=== PATIENT | female | born 1955 | race Two or more races ===

== ENCOUNTER 2018-10-31 02:24 | Inpatient (IN) | payer OTHER ==
--- NOTE | 2018-10-30 04:00 | NUR ---
RN NOTES 0230 AM - ADMITTED PATIENT FROM [facility] DUE TO PALPITATION, DIAGNOSED WITH AFIB WITH RVR BY TRISTAN FOLEY. WITH HX OF HTN AND DM, NKA. NO SOB IN ROOM AIR SATURATION 97% SR ON TELE MONITOR, HR 72. PT IS AOX3 AFGHAN SPEAKING ONLY. AMBULATE WITH ASSIST PER SON. SKIN IS INTACT. KEPT PT CLEAN AND DR/ CALL LIGHT WITHIN EASY REACH INSTRUCTION PROVIDED FOR SAFETY AND ASSISTANCE. KEPT PT CLEAN AND COMFORTABLE ON BED. WILL ENDORSED CONTINUITY OF CARE TO AM NURSE.
[~2018-10-31] VITALS: Ht 152.4 cm; Wt 86.2 kg
[2018-10-31] VITALS (7 sets, daily range): BP systolic 108–132; BP diastolic 53–81
[2018-10-31] MEDS ORDERED: HEPARIN SODIUM, PORCINE 5000 UNITS/1 ML VIAL SQ SCH (03:00)
[2018-10-31] MEDS ORDERED: ZOLPIDEM TARTRATE 5 MG TABLET PO PRN (03:00)
[2018-10-31] MEDS ORDERED: MAG HYDROX/AL HYDROX/SIMETH 30 ML UDC PO PRN (03:00)
[2018-10-31] MEDS ORDERED: HYDROCODONE/APAP 5/325MG 1 EACH TABLET PO PRN (03:00)
[2018-10-31] MEDS ORDERED: ONDANSETRON HCL/PF 4 MG/2 ML VIAL IVP PRN (03:00)
[2018-10-31] MEDS ORDERED: ACETAMINOPHEN 325 MG TABLET PO PRN (03:00)
[2018-10-31] MEDS ORDERED: Z GUARD REMEDY 2 OZ OINT TP PRN (03:00)
[2018-10-31] MEDS ORDERED: METF-441 PO (03:05)
[2018-10-31] MEDS ORDERED: LOSA25TA27 PO (03:06)
[2018-10-31] MEDS ORDERED: ASPI-1169 PO (03:06)
[2018-10-31] MEDS ORDERED: ATEN50TA PO (03:06)
[2018-10-31] MEDS ORDERED: HEPARIN SODIUM, PORCINE 5000 UNITS/1 ML VIAL SQ ONE (04:00)
--- NOTE | 2018-10-31 06:53 | NUR ---
RN NOTES PATIENT ASLEEP WELL ON BED. BREATHING EVEN AND UNLABORED. DENIES PAIN. ATE SNACKS NO ASPIRATION SHOWS. NO SIGNIFICANT CHANGE OF CONDITION THROUGHOUT THE SHIFT. CONTINUE TO MONITOR.
--- NOTE | 2018-10-31 07:15 | NUR ---
report received from Elle RN, pt awake alert, denies Chest pain of SOB
[2018-10-31] MEDS ORDERED: DEXTROSE 50%-WATER 50 ML DISP.SYRIN IV PRN (08:00)
[2018-10-31] MEDS ORDERED: CLONIDINE HCL 0.1 MG TABLET PO PRN (08:00)
[2018-10-31 08:36] LABS: BASOPHILS % (AUTO) 0.3 % (0.0-2.0); EOSINOPHILS % (AUTO) 4.4 % (0.0-6.0); HEMATOCRIT 37 % (33-45); HEMOGLOBIN 12.2 g/dL (11.5-14.8); LYMPHOCYTES # (AUTO) 1.9 /CMM (0.8-4.8); LYMPHOCYTES % (AUTO) 37.3 % (20.0-44.0); MEAN CORPUSCULAR HGB CONC 33 g/dl (31.0-36.0); MEAN CORPUSCULAR VOLUME 84 fL (82-100); MONOCYTES # (AUTO) 0.6 /CMM (0.1-1.30); MONOCYTES % (AUTO) 12.4 % (2.0-12.0); NEUTROPHILS # (AUTO) 2.3 /CMM (1.8-8.9); NEUTROPHILS % (AUTO) 45.6 % (43.0-81.0); PLATELET COUNT (AUTO) 259 /CMM (150-450); RED BLOOD CELL COUNT(AUTO) 4.43 MIL/uL (4.0-5.2); WHITE BLOOD COUNT (AUTO) 5.1 K/uL (4.3-11.0)
[2018-10-31 09:08] LABS: ALBUMIN 3.2 g/dL (3.4-5.0); BILIRUBIN,TOTAL 0.5 mg/dL (0.2-1.0); CALCIUM, SERUM 8.9 mg/dL (8.5-10.1); CREATININE 0.6 mg/dL (0.6-1.3); MAGNESIUM 1.7 mg/dL (1.8-2.4); PHOSPHORUS 3.7 mg/dL (2.5-4.9); POTASSIUM 3.8 mmol/L (3.5-5.1); TOTAL PROTEIN, SERUM 6.7 g/dL (6.4-8.2)
[2018-10-31] MEDS: Magnesium 1GM/D5W 100ML PREMIX 100 ML IV SCH ×2 (10:18→11:42)
[2018-10-31] MEDS: DRONEDARONE HYDROCHLORIDE 400 MG TABLET PO SCH ×2 (10:19→16:50)
[2018-10-31] MEDS: LOSARTAN POTASSIUM 50 MG TABLET PO SCH (10:19)
[2018-10-31] MEDS: BLOOD SUGAR DIAGNOSTIC 1 EACH STRIP IN SCH ×3 (12:00→22:24)
[2018-10-31] MEDS: INSULIN REGULAR, HUMAN 100 UNIT/ML 3 ML VIAL SQ PRN ×2 (12:14→22:27)
[2018-10-31 14:20] LABS: THYROID STIMULATING HORMONE 5.89 uIU/mL (0.358-3.74)
[2018-10-31] MEDS: RIVAROXABAN 10 MG TABLET PO SCH (16:51)
--- NOTE | 2018-10-31 19:04 | NUR ---
report given to crystal carson
--- NOTE | 2018-10-31 19:55 | NUR ---
SOLAR INSTALLATION TECHNICIAN OPENING NOTES RECEIVED REPORT FROM AM RN. PATIENT A/A/O X3, ABLE TO MAKE NEEDS KNOWN. BREATHING EVEN & UNLABORED, TOLERATING ROOM AIR W/ NO RESPIRATORY DISTRESS NOTED. ON TELE W/ SINUS RHYTHM W/ FIRST DEGREE AVB, HR 76. DENIES ANY CHEST PAIN OR PALPITATIONS. DC'D LEFT AC IV DUE TO C/O PAIN AROUND SITE & PER PATIENT'S REQUEST. DENIES ANY OTHER PAIN. SAFETY MEASURES IN PLACE W/ SIDE RAILS UP & CALL LIGHT WITHIN REACH. INSTRUCTED TO CALL FOR ASSISTANCE. WILL CONTINUE TO MONITOR.
[2018-11-01] VITALS: BP 106/66
[2018-11-01 04:00] VITALS: BP 118/71
[2018-11-01 06:29] LABS: BASOPHILS % (AUTO) 0.2 % (0.0-2.0); HEMATOCRIT 36 % (33-45); HEMOGLOBIN 12.1 g/dL (11.5-14.8); LYMPHOCYTES # (AUTO) 2.6 /CMM (0.8-4.8); LYMPHOCYTES % (AUTO) 51.1 % (20.0-44.0); MEAN CORPUSCULAR HGB CONC 33 g/dl (31.0-36.0); MEAN CORPUSCULAR VOLUME 84 fL (82-100); MONOCYTES # (AUTO) 0.5 /CMM (0.1-1.30); MONOCYTES % (AUTO) 9.2 % (2.0-12.0); NEUTROPHILS # (AUTO) 1.7 /CMM (1.8-8.9); NEUTROPHILS % (AUTO) 33.5 % (43.0-81.0); PLATELET COUNT (AUTO) 239 /CMM (150-450); RED BLOOD CELL COUNT(AUTO) 4.32 MIL/uL (4.0-5.2)
[2018-11-01 06:41] LABS: ALANINE AMINOTRANSFERASE 24 U/L (12-78); ALBUMIN 3.1 g/dL (3.4-5.0); ALKALINE PHOSPHATASE 73 U/L (46-116); ASPARTATE AMINOTRANSFERASE 16 U/L (15-37); BILIRUBIN,TOTAL 0.4 mg/dL (0.2-1.0); CALCIUM, SERUM 8.7 mg/dL (8.5-10.1); CARBON DIOXIDE 25 mmol/L (21-32); CHLORIDE 105 mmol/L (98-107); CREATININE 0.7 mg/dL (0.6-1.3); GLUCOSE 140 mg/dL (74-106); PHOSPHORUS 3.9 mg/dL (2.5-4.9); POTASSIUM 3.8 mmol/L (3.5-5.1); SODIUM SERUM 139 mmol/L (136-145); TOTAL PROTEIN, SERUM 6.4 g/dL (6.4-8.2); UREA NITROGEN, BLOOD 16 mg/dL (7-18)
[2018-11-01 07:08] LABS: CHOLESTEROL 132 mg/dL (<200); HDL CHOLESTEROL 42 mg/dL (40-60); LDL 79 mg/dL (0-99); TRIGLYCERIDES 124 mg/dL (30-150)
[2018-11-01 08:00] VITALS: BP 117/54
[2018-11-01 08:10] LABS: *SPE A/G RATIO 1.2 (0.7-1.7); *SPE ALBUMIN 3.4 g/dL (2.9-4.4); *SPE ALPHA-1-GLOBULIN 0.2 g/dL (0.0-0.4); *SPE ALPHA-2-GLOBULIN 0.7 g/dL (0.4-1.0); *SPE BETA GLOBULIN 1.1 g/dL (0.7-1.3); *SPE GLOBULIN, TOTAL 2.9 g/dL (2.2-3.9); *SPE M-SPIKE Not Observed g/dL (Not Observed); *SPEGAMMA GLOBULIN 0.9 g/dL (0.4-1.8)
--- NOTE | 2018-11-01 08:13 | NUR ---
PERSONNEL SCHEDULER NOTES RECEIVED PT ALERT AND ORIENTED. ON TELE MONITOR SR. R HAND HL INTACT. NO SOB, NO COMPLAINS OF CHEST PAIN OR DISCOMFORT AT THIS TIME. BS 152 MG/DL. PLAN OF CARE DISCUSSED WITH THE PT. BED IN LOWEST POSITION. CALL LIGHT WITHIN REACH. WILL CONTINUE TO MONITOR.
[2018-11-01] MEDS: DRONEDARONE HYDROCHLORIDE 400 MG TABLET PO SCH ×2 (08:32→16:30)
[2018-11-01] MEDS: LOSARTAN POTASSIUM 50 MG TABLET PO SCH (08:32)
[2018-11-01] MEDS: INSULIN REGULAR, HUMAN 100 UNIT/ML 3 ML VIAL SQ PRN ×2 (08:34→12:21)
[2018-11-01] MEDS: BLOOD SUGAR DIAGNOSTIC 1 EACH STRIP IN SCH ×2 (08:35→12:25)
[2018-11-01 12:00] VITALS: BP_SYST 138; BP_DIAS 80; BP_DIAS 82
--- NOTE | 2018-11-01 12:23 | NUR ---
PLACEMENT OFFICER NOTES AMBULATED AROUND THE ROOM. ABLE TO GO TO THE RESTROOM BY HERSELF.
--- NOTE | 2018-11-01 15:09 | NUR ---
WOODWORKING MACHINE OFFBEARER NOTES RECEIVED PT FROM ER WITH DX SYNCOPE AND POSSIBLE ACS, CHEST PAIN, AND POSSIBLE AUTONOMIC IMBALANCE. UNDER CARE OF RN OG CEDEÑO. ALERT ORIENTED. ON TELE MONITOR SR HR 60. PT HAS RT AC GAUGE 20. INTACT. NO SOB. HOSPITAL ORIENTATION DONE. VS CHECKED AND STABLE. BED ON LOWEST POSITION. WILL CONT TO MONITOR CLOSELY. Addendum: 11/01/18 at 1534 by ANNE PICHARDO RN WRONG CHART. WRONG ENTRY.
--- NOTE | 2018-11-01 15:34 | NUR ---
CORRECTIONS OFFICER NOTE AMBULATED AROUND HES ROOM ,NO C]O DIZZINESS OR CHEST PAIN, CALLED SON WILL BE DISCHARGE SOON
--- NOTE | 2018-11-01 15:35 | NUR ---
METAL CONTAINER MAKER NOTE DISCHARGE INSTRUCTION DONE, UNDERSTOOD, HL REMOVED EXPLAINED HOW TO TAKE HOME MEDS AND POSSIBLE SIDE EFFECTS AND INSTRUCTED TO FOLLOW UP WITH PRIMARY CARE DOCTOR BELONGING SIGNED
[2018-11-01 16:00] VITALS: BP_SYST 110; BP_SYST 111; BP_DIAS 70
[2018-11-01] MEDS: RIVAROXABAN 10 MG TABLET PO SCH (16:30)
--- NOTE | 2018-11-01 16:54 | NUR ---
ROLL SHOP SUPERVISOR NOTES PATIENT DISCHARGED HOME IN STABLE CONDITION. HL IS REMOVED NO BLEEDING NOTED. PRESSURE APPLIED. FAMILY ON BEDSIDE. TAKEN TO THE LOBBY BY LIBRARY SUPERVISOR ON A WHEELCHAIR.
== END 2018-11-01 19:16 | disposition home or self-care (01) | DRG 201 ==
LOC: TELE1 02:24
PROVIDERS: ADMIT Nurse Practitioner Acute Care; ATTEND Nurse Practitioner Acute Care
DX: I48.91 Unspecified atrial fibrillation (principal); E11.9 Type 2 diabetes mellitus without complications; I10 Essential (primary) hypertension; E66.9 Obesity, unspecified; Z68.37 Body mass index [BMI] 37.0-37.9, adult; Z90.49 Acquired absence of other specified parts of digestive tract
CPT/HCPCS: 36415; 80053-TC; 80061-TC; 82962-TC; 83735-TC; 84100-TC; 84155; 84165; 84439-TC; 84443-TC; 84484-TC; 85025-TC; 93307-TC; G0378; J1644; J1815; J3475

== ENCOUNTER 2018-12-28 22:18 | Emergency (ER) | payer OTHER ==
[~2018-12-28] VITALS: Ht 152.4 cm; Wt 86.2 kg
[~2018-12-28 22:18] MED LIST: ASPI-1169 PO; ATEN50TA PO; LOSA25TA27 PO; METF-441 PO
[2018-12-29] MEDS ORDERED: hydrALAZINE HCL IV 20 MG VIAL IV ONE
--- NOTE | 2018-12-29 | NUR ---
PT CAME TO EMERGENCY DEPT. COMPLAINING OF HEADACHE/DIZZINESS AND HYPERTENSION X 1 WEEK. PT AXO4. RESPIRATIONS EVEN AND UNLABORED. PT PUT ON THE WEB ART DIRECTOR AND PULSE OX. PT HYPERTENSIVE ON THE MONITOR.
--- NOTE | 2018-12-29 00:05 | NUR ---
CASHIER RECEPTIONIST AT BEDSIDE. LABS SENT.
[2018-12-29 00:20] LABS: BASOPHILS # (AUTO) 0.1 /CMM (0.0-0.2); BASOPHILS % (AUTO) 0.9 % (0.0-2.0); EOSINOPHILS % (AUTO) 1.9 % (0.0-6.0); HEMATOCRIT 41 % (33-45); HEMOGLOBIN 13.4 g/dL (11.5-14.8); LYMPHOCYTES # (AUTO) 2.5 /CMM (0.8-4.8); MEAN CORPUSCULAR HGB CONC 33 g/dl (31.0-36.0); MEAN CORPUSCULAR VOLUME 84 fL (82-100); MONOCYTES # (AUTO) 0.6 /CMM (0.1-1.30); MONOCYTES % (AUTO) 4.5 % (2.0-12.0); NEUTROPHILS # (AUTO) 9.1 /CMM (1.8-8.9); NEUTROPHILS % (AUTO) 72.7 % (43.0-81.0); PLATELET COUNT (AUTO) 336 /CMM (150-450); RED BLOOD CELL COUNT(AUTO) 4.86 MIL/uL (4.0-5.2); WHITE BLOOD COUNT (AUTO) 12.5 K/uL (4.3-11.0)
[2018-12-29] MEDS ORDERED: hydrALAZINE HCL IV 20 MG VIAL ONE (00:23)
[2018-12-29 00:32] LABS: CALCIUM, SERUM 9.9 mg/dL (8.5-10.1); CARBON DIOXIDE 28 mmol/L (21-32); CHLORIDE 101 mmol/L (98-107); GLUCOSE 177 mg/dL (74-106); POTASSIUM 3.9 mmol/L (3.5-5.1); SODIUM SERUM 139 mmol/L (136-145); UREA NITROGEN, BLOOD 22 mg/dL (7-18)
[2018-12-29 00:37] LABS: ALANINE AMINOTRANSFERASE 29 U/L (12-78); ALKALINE PHOSPHATASE 86 U/L (46-116); ASPARTATE AMINOTRANSFERASE 12 U/L (15-37); BILIRUBIN,DIRECT 0.1 mg/dL (0.0-0.2); BILIRUBIN,TOTAL 0.3 mg/dL (0.2-1.0); TOTAL PROTEIN, SERUM 7.7 g/dL (6.4-8.2)
--- NOTE | 2018-12-29 01:20 | NUR ---
PT RESTING IN BED COMFORTABLY, NAD NOTED. WILL CONTINUE TO MONITOR.
--- NOTE | 2018-12-29 02:15 | NUR ---
Patient discharged to home in stable condition. Written and verbal after care instructions given. Patient verbalizes understanding of instruction. IV removed. Catheter intact and site benign. Pressure and 4x4 applied to site. No bleeding noted. Pt ambulatory with steady gait.
[2018-12-29 02:29] VITALS: BP 138/88
== END 2018-12-29 02:29 | disposition home or self-care (01) ==
LOC: ER 22:20
DX: I16.0 Hypertensive urgency (principal); E11.9 Type 2 diabetes mellitus without complications; Z90.710 Acquired absence of both cervix and uterus; Z98.890 Other specified postprocedural states; Z79.82 Long term (current) use of aspirin; Z79.899 Other long term (current) drug therapy; Z79.84 Long term (current) use of oral hypoglycemic drugs
CPT/HCPCS: 36415; 70450; 71045; 80048; 80076; 84484; 85025; 85730; 96374; 99284; J0360